=== PATIENT | female | born 1990 ===

== ENCOUNTER 2022-01-30 11:45 | Inpatient (IN) | payer OTHER ==
[~2022-01-30] VITALS: Ht 167.6 cm; Wt 3.6 kg
[2022-02-19] MEDS ORDERED: IRON PO (13:37)
[2022-02-19] MEDS ORDERED: PRENATAL + DHA1 EAC1 PO (13:37)
[2022-02-19] MEDS ORDERED: METFORMIN HCL500 MG PO (13:38)
[2022-02-19] MEDS ORDERED: B COMPLEX1 EACH PO (13:39)
[2022-02-22] MEDS ORDERED: OXYC1TAB9 PO (09:29)
[2022-02-22] MEDS ORDERED: IBUPROFEN800 MG PO (09:29)
== END 2022-02-22 14:15 | disposition home or self-care (01) | DRG 788 ==
LOC: OB/GYN 02-18 11:45 → LDR 02-19 11:28 → OB/GYN 02-19 19:44
PROVIDERS: ADMIT Obstetrics & Gynecology Maternal & Fetal Medicine; ATTEND Obstetrics & Gynecology Maternal & Fetal Medicine
PROC: 4A1HXCZ Monitoring of Products of Conception, Cardiac Rate, External Approach (ICD-10-PCS; 2022-02-19)
PROC: 10D00Z1 Extraction of Products of Conception, Low, Open Approach (ICD-10-PCS; principal; 2022-02-19 16:08)
DX: O33.8 Maternal care for disproportion of other origin (principal); Z3A.40 40 weeks gestation of pregnancy; Z37.0 Single live birth; Z20.822 Contact with and (suspected) exposure to COVID-19

== ENCOUNTER 2022-02-06 10:24 | Outpatient (CLI) | payer OTHER | END 2022-02-06 11:18 | disposition home or self-care (01) | LOC: NST 10:24 | PROVIDERS: ATTEND Obstetrics & Gynecology Gynecology | DX: Z34.83 Encounter for supervision of other normal pregnancy, third trimester (principal) ==

== ENCOUNTER → 2024-03-14 08:41 | Outpatient (CLI) | payer OTHER ==
[~2024-03-14 08:41] MED LIST: B COMPLEX1 EACH PO; IBUPROFEN800 MG PO; IRON PO; METFORMIN HCL500 MG PO; OXYC1TAB9 PO; PRENATAL + DHA1 EAC1 PO
== END | disposition home or self-care (01) ==
LOC: PRENATAL 08:41
PROVIDERS: ATTEND Obstetrics & Gynecology Maternal & Fetal Medicine
DX: O36.80X0 Pregnancy with inconclusive fetal viability, not applicable or unspecified (principal); Z36.82 Encounter for antenatal screening for nuchal translucency; Z36.9 Encounter for antenatal screening, unspecified; Z3A.13 13 weeks gestation of pregnancy

== ENCOUNTER → 2024-05-02 13:43 | Outpatient (CLI) | payer OTHER | END | disposition home or self-care (01) | LOC: PRENATAL 13:43 | PROVIDERS: ATTEND Obstetrics & Gynecology Maternal & Fetal Medicine | DX: O35.3XX0 Maternal care for (suspected) damage to fetus from viral disease in mother, not applicable or unspecified (principal); O44.00 Complete placenta previa NOS or without hemorrhage, unspecified trimester; Z14.8 Genetic carrier of other disease; O99.210 Obesity complicating pregnancy, unspecified trimester; Z3A.20 20 weeks gestation of pregnancy ==

== ENCOUNTER 2024-08-08 10:03 | Outpatient (CLI) | payer OTHER | END 2024-08-08 10:04 | disposition home or self-care (01) | LOC: PRENATAL 10:03 | PROVIDERS: ATTEND Obstetrics & Gynecology Maternal & Fetal Medicine | DX: O26.849 Uterine size-date discrepancy, unspecified trimester (principal); O36.8199 Decreased fetal movements, unspecified trimester, other fetus; Z14.8 Genetic carrier of other disease; O99.210 Obesity complicating pregnancy, unspecified trimester; Z3A.35 35 weeks gestation of pregnancy ==